=== PATIENT | female | born 1935 | race Caucasian/White ===

== ENCOUNTER 2016-08-13 10:15 | Emergency (ER) | payer OTHER, MEDICARE ==
[~2016-08-13] VITALS: Ht 170.2 cm; Wt 111.1 kg
[2016-08-13] MEDS ORDERED: COREG6.25 MG PO (10:36)
[2016-08-13] MEDS ORDERED: QUINAPRIL 20 MG20 MG PO (10:37)
[2016-08-13] MEDS ORDERED: GLUCOPHAGE XR750 MG PO (10:37)
[2016-08-13] MEDS ORDERED: LEVOTHYROXIN0.075 MG PO (10:37)
[2016-08-13] MEDS ORDERED: PROTONIX40 M1 PO (10:39)
[2016-08-13] MEDS ORDERED: MAXZIDE-25 MG1 EACH PO (10:39)
[2016-08-13] MEDS ORDERED: B COMPLETE1 EAC1 PO (10:40)
[2016-08-13] MEDS ORDERED: ATIVAN0.5 MG PO (10:40)
[2016-08-13] MEDS ORDERED: FLEXERIL PO (10:41)
[2016-08-13] MEDS ORDERED: PERCOCET PO (10:41)
[2016-08-13] MEDS ORDERED: MIRALAX17 GM PO (10:42)
[2016-08-13] MEDS ORDERED: LIDODERM 5%1 PATC1 TRANSDERM (10:42)
[2016-08-13] MEDS ORDERED: ELIQUIS5 MG PO (10:42)
[2016-08-13 11:02] LABS: HEMATOCRIT 35.4 % (37.0-47.0); HEMOGLOBIN 12.2 gm/dL (12.0-15.0); MCH 31.2 pg (26.0-34.0); MCHC 34.4 g/dL (28.0-37.0); MCV 90.8 fL (80.0-100.0); RBC 3.89 mil/uL (4.20-5.00); RDW 16.3 % (10.5-14.5); WBC 13.6 thou/uL (4.0-11.0)
[2016-08-13 11:04] LABS: MANUAL DIFF YES
[2016-08-13 11:08] LABS: ABG SAMPLE TYPE ARTERIAL; BE(vivo) 1.7 mmol/L (-2 to +3); LACTATE 1.66 mmol/L (0.5-2.0); O2(CT) 16.5 mL/dL (15.0-23.0); PCO2 30.6 mmHg (35.0-45.0); PO2 69.7 mmHg (80.0-100.0); pH 7.512 (7.360-7.450); sO2 95.6 % (92.0-98.0); tCO2 24.9 mmol/L (24.0-30.0)
[2016-08-13 11:09] LABS: STICK SITE R.RADIAL
[2016-08-13 11:22] LABS: CALCIUM 9.4 mg/dL (8.5-10.1); CREATININE 0.9 mg/dL (0.6-1.0); POTASSIUM 3.9 mmol/L (3.5-5.1)
[2016-08-13 11:34] LABS: PLATELET ESTIMATE DECREASED; TOTAL CELL COUNT 100
[2016-08-13 11:36] LABS: PLATELET COUNT 97 thou/uL (150-400)
[2016-08-13 11:37] LABS: ANISOCYTOSIS 1+
[2016-08-13] MEDS ORDERED: AUGMENTIN 875-1 EACH PO (11:58)
[2016-08-13 12:45] VITALS: BP 131/56
== END 2016-08-13 12:46 | disposition home or self-care (01) ==
LOC: ER 10:15
PROVIDERS: Emergency Medicine
DX: S81.851A Open bite, right lower leg, initial encounter (principal); B96.89 Other specified bacterial agents as the cause of diseases classified elsewhere; Z88.1 Allergy status to other antibiotic agents; Z88.8 Allergy status to other drugs, medicaments and biological substances; Z87.891 Personal history of nicotine dependence; W55.01XA Bitten by cat, initial encounter; Y93.89 Activity, other specified; Y92.89 Other specified places as the place of occurrence of the external cause; Y99.8 Other external cause status